=== PATIENT | female | born 1985 | race Caucasian/White ===

== ENCOUNTER → 2022-05-03 | Outpatient (CLI) | payer OTHER ==
[~2022-05-03] MED LIST: ACULAR 3 ML3 M1 OP; ATIVAN0.5 MG PO; LAMICTAL25 MG PO; LUVOX25 MG PO; MIDRIN (DURADR1 CAP PO; PERCOCET 325 MG1 TA5; TOBREX OPHTH S2.5 ML OPH; WELLBUTRIN SR150 MG PO
[2022-05-03 12:20] LABS: HEMATOCRIT 43.7 % (37.0-47.0); MEAN CELL VOLUME 84.7 fl (81.0-99.0); MEAN CORPUSCULAR HGB 28.5 pg (27.0-31.0); MEAN CORPUSCULAR HGB CONC 33.6 g/dl (33.0-37.0); MEAN PLATELET VOLUME 10.2 fl (9.6-12.3); RED BLOOD COUNT 5.16 10*6/uL (4.10-5.10); RED CELL DISTRI WIDTH 16.5 % (0-14.5); WHITE BLOOD COUNT 9.2 10*3/uL (4.8-10.8)
[2022-05-03 12:40] LABS: BUN 10 mg/dl (7-24); CHLORIDE 110 mmol/L (98-107); CHOLESTEROL 218 mg/dL (<200); CREATININE 0.67 mg/dL (0.55-1.02); GAMMA GLUTAMYL TRANSPEPTIDASE 57 U/L (5-55); POTASSIUM 3.8 mmol/L (3.5-5.1); SGOT/AST 28 IU/L (3-35); SGPT/ALT 30 U/L (12-78); SODIUM 139 mmol/L (136-145); TOTAL PROTEIN 6.8 gm/dL (6.4-8.2); TRIGLYCERIDES 130 mg/dl (<150)
[2022-05-03 12:44] LABS: ALKALINE PHOSPHATASE 115 U/L (45-117); FREE T4 0.86 ng/dl (0.76-1.46); LDL CHOLESTEROL 126 mg/dL (9-159); THYROID STIM HORMONE (HS) 0.754 uIU/ml (0.358-4.75)
[2022-05-03 13:15] LABS: VITAMIN D, 25-HYDROXY 44.8 ng/mL (30-100)
== END | disposition home or self-care (01) ==
LOC: LAB 11:41
PROVIDERS: ATTEND Family Medicine
DX: Z00.00 Encounter for general adult medical examination without abnormal findings (principal); F17.200 Nicotine dependence, unspecified, uncomplicated; E74.00 Glycogen storage disease, unspecified; F41.1 Generalized anxiety disorder; E55.9 Vitamin D deficiency, unspecified; R53.83 Other fatigue